=== PATIENT | female | born 2000 | race Caucasian/White ===

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

== ENCOUNTER 2022-03-10 15:30 | Outpatient (REF) | payer BC, MEDICAID, SELFPAY ==
--- NOTE | ~2022-03-10 | US_ITS ---
EXAMINATION: US PELVIS, LIMITED/FOLLOW UP CLINICAL INFORMATION: Excessive and frequent menses, last menstrual period 02/20/2022, patient declined transvaginal ultrasound. COMPARISON: None TECHNIQUE: Transabdominal ultrasound images were obtained of the pelvis. Bladder is suboptimally distended, limiting visualization for transabdominal ultrasound. Patient declined transvaginal ultrasound. FINDINGS: The uterus is heterogeneous and measures 7.0 x 3.7 x 4.9 cm. No discrete fibroid. Endometrial thickness 1.8 cm. No significant free fluid. Bilateral ovaries are unremarkable and measure 2.0 x 1.5 x 2.4 cm and 1.8 x 2.1 x 2.9 cm. US/US pelvic limited IMPRESSION: Uterus and bilateral ovaries are grossly unremarkable, however, visualization limited as bladder is suboptimally distended limiting visualization for transabdominal ultrasound. Patient declined transvaginal ultrasound. Transvaginal ultrasound should be considered for better visualization.
== END 2022-03-10 15:31 | disposition home or self-care (01) ==
LOC: HO.HMGCX 15:30
PROVIDERS: Visit Provider Nurse Practitioner Primary Care
DX: N92.0 Excessive and frequent menstruation with regular cycle (principal)
CPT/HCPCS: 76857

== ENCOUNTER 2022-04-14 08:46 | Outpatient (RCR) | payer BC, MEDICAID, SELFPAY | END 2022-05-10 12:12 | disposition home or self-care (01) | LOC: HO.WCC 08:46 | PROVIDERS: PCP Nurse Practitioner Primary Care; Visit Provider Physician Assistant | DX: L98.499 Non-pressure chronic ulcer of skin of other sites with unspecified severity (principal); L02.91 Cutaneous abscess, unspecified; E10.9 Type 1 diabetes mellitus without complications | CPT/HCPCS: 17250; 97602; 99212; 99213 ==

== ENCOUNTER 2022-09-20 14:04 | Emergency (ER) | payer BC, MEDICAID, SELFPAY ==
[2022-09-20 14:13] VITALS: BP 155/82; PULSE 98; RESP 20; TEMP 36.6; O2SAT 98; BMI 34.9
--- NOTE | 2022-09-20 14:13 | ED_ITS ---
HPI - General Adult General Chief complaint: Recheck/Abnormal Lab/Rx Stated complaint: Low blood sugar Related Data Home Medications Medication Instructions Recorded Confirmed insulin aspart U-100 100 unit/mL 1 unit subcut TID 01/19/21 01/19/21 (3 mL) subcutaneous pen (Novolog FlexPen U-100 Insulin aspart) insulin degludec 100 unit/mL (3 80 unit subcut BEDTIME 01/19/21 01/19/21 mL) subcutaneous pen (Tresiba FlexTouch U-100 insulin) Allergies Allergy/AdvReac Type Severity Reaction Status Date / Time No Known Allergies Allergy Verified 01/19/21 13:43 [facility] Past Medical History Surgical History (Updated 01/19/21 @ 13:47 by EL Ng) History of appendectomy History of placement of ear tubes Family History Family History (Updated 01/19/21 @ 13:47 by EL Ng) Father Heart disease Mother No problems noted. Social History Social History (Updated 01/19/21 @ 13:46 by EL Ng) Alcohol intake: never Patient Tobacco Use Status: Never used Tobacco Advance Directives: No Advance Directives Information Provided: No Physical Exam ED Vital Signs: BMI result Body Mass Index 34.9 Course Course Course Narrative: This is rapid medical exam. Deferred additional HPI, ROS, PE to primary provider. 21 yo female IDDM, with recent medication changes in the last week here with low blood sugars since yesterday. BS 117 in triage. Will obtain labs, UA, COVID screen. VSS Medical Decision Making Lab Data 09/20/22 14:22 09/20/22 14:22 Labs: Lab Results 09/20/22 09/20/22 09/20/22 Range/Units 14:09 14:22 14:22 WBC 8.6 (4.8-10.8) X10*3/uL RBC 4.89 (4.20-5.50) X10*6/uL Hgb 12.6 (12.0-16.0) g/dl Hct 39.6 (37.0-47.0) % MCV 81.0 (80.0-98.0) fL MCH 25.8 L (27.0-33.0) pg MCHC 31.8 (31.0-35.0) g/dl RDW 13.4 (11.0-16.0) % Plt Count 399 (160-400) X10*3/uL MPV 9.8 (9.4-12.3) fL Immature Gran % (Auto) 0.2 (0.0-0.4) % Neut % (Auto) 61.5 (45-73) % Lymph % (Auto) 30.8 (20-40) % [place] % (Auto) 6.0 (2-11) % Eos % (Auto) 1.3 (0-4) % Baso % (Auto) 0.2 (0-2) % Lymph # (Auto) 2.6 (1.2-4.9) X10*3/uL [place] # (Auto) 0.5 (0.1-1.2) X10*3/uL Eos # (Auto) 0.1 (0.0-0.4) X10*3/uL Baso # (Auto) 0.0 (0.0-0.2) X10*3/uL Abs Immat Gran (auto) 0.02 (0.00-0.03) X10*3/uL Absolute Neuts (auto) 5.3 (2.0-8.3) x10*3/uL Absolute Nucleated RBC 0.000 (0.0-0.012) X10*3/uL Nucleated RBC % (auto) 0.0 (0.0-0.2) /100WBC Sodium 139 (135-145) mmol/L Potassium 4.2 (3.3-5.1) mmol/L Chloride 102 (96-108) mmol/L Carbon Dioxide 29 (22-29) mmol/L Anion Gap 12 (12-20) BUN 11 (9-16) mg/dL Creatinine 0.68 (0.5-1.4) mg/dL Estim Creat Clear Calc 168.1 Estimated GFR > 60 POC Glucose 117 H (60-115) mg/dL Random Glucose 105 (60-115) mg/dL Calcium 9.7 (8.4-10.2) mg/dL Total Bilirubin 0.2 (0.0-1.0) mg/dL Direct Bilirubin < 0.2 (0.0-0.5) mg/dL AST 25 (5-31) U/L ALT 39 H (0-31) U/L Alkaline Phosphatase 126 H (39-117) U/L Total Protein 6.8 (6.5-8.0) g/dL Albumin 3.8 (3.5-5.0) g/dL COVID-19 (DEBRA) (Negative) COVID-19 Clin Com 09/20/22 Range/Units 14:22 WBC (4.8-10.8) X10*3/uL RBC (4.20-5.50) X10*6/uL Hgb (12.0-16.0) g/dl Hct (37.0-47.0) % MCV (80.0-98.0) fL MCH (27.0-33.0) pg MCHC (31.0-35.0) g/dl RDW (11.0-16.0) % Plt Count (160-400) X10*3/uL MPV (9.4-12.3) fL Immature Gran % (Auto) (0.0-0.4) % Neut % (Auto) (45-73) % Lymph % (Auto) (20-40) % [place] % (Auto) (2-11) % Eos % (Auto) (0-4) % Baso % (Auto) (0-2) % Lymph # (Auto) (1.2-4.9) X10*3/uL [place] # (Auto) (0.1-1.2) X10*3/uL Eos # (Auto) (0.0-0.4) X10*3/uL Baso # (Auto) (0.0-0.2) X10*3/uL Abs Immat Gran (auto) (0.00-0.03) X10*3/uL Absolute Neuts (auto) (2.0-8.3) x10*3/uL Absolute Nucleated RBC (0.0-0.012) X10*3/uL Nucleated RBC % (auto) (0.0-0.2) /100WBC Sodium (135-145) mmol/L Potassium (3.3-5.1) mmol/L Chloride (96-108) mmol/L Carbon Dioxide (22-29) mmol/L Anion Gap (12-20) BUN (9-16) mg/dL Creatinine (0.5-1.4) mg/dL Estim Creat Clear Calc Estimated GFR POC Glucose (60-115) mg/dL Random Glucose (60-115) mg/dL Calcium (8.4-10.2) mg/dL Total Bilirubin (0.0-1.0) mg/dL Direct Bilirubin (0.0-0.5) mg/dL AST (5-31) U/L ALT (0-31) U/L Alkaline Phosphatase (39-117) U/L Total Protein (6.5-8.0) g/dL Albumin (3.5-5.0) g/dL COVID-19 (DEBRA) Negative (Negative) COVID-19 Clin Com See Note Discharge Plan Discharge Clinical Impression: Type I diabetes mellitus with complication Patient Disposition: Elopement Prescriptions: No Action Tresiba FlexTouch U-100 100 unit/mL (3 mL) insulin pen 80 unit subcut BEDTIME insulin aspart U-100 [Novolog FlexPen U-100 Insulin] 100 unit/mL (3 mL) insulin pen 1 unit subcut TID Rx Instructions: as directed per sliding scale Interventions: ED Discharge Assessment Last Done: 09/20/22 17:41 Discharge Date/Time: 09/20/22 17:42
[2022-09-20 14:27] LABS: MANUAL DIFF FLAG NO
[2022-09-20 14:32] LABS: Basophils Percent Auto 0.2 % (0-2); Eosinophils Absolute Auto 0.1 X10*3/uL (0.0-0.4); Eosinophils Percent Auto 1.3 % (0-4); Hematocrit 39.6 % (37.0-47.0); Hemoglobin 12.6 g/dl (12.0-16.0); Imm Gran Abs Auto 0.02 X10*3/uL (0.00-0.03); Imm Gran Pct Auto 0.2 % (0.0-0.4); Lymphocytes Absolute Auto 2.6 X10*3/uL (1.2-4.9); Lymphocytes Percent Auto 30.8 % (20-40); Mean Corpuscular HGB Conc 31.8 g/dl (31.0-35.0); Mean Corpuscular Hemoglobin 25.8 pg (27.0-33.0); Mean Platelet Volume 9.8 fL (9.4-12.3); Monocytes Absolute Auto 0.5 X10*3/uL (0.1-1.2); Neutrophils Absolute Auto 5.3 x10*3/uL (2.0-8.3); Neutrophils Percent Auto 61.5 % (45-73); Platelet Count 399 X10*3/uL (160-400); Red Blood Count 4.89 X10*6/uL (4.20-5.50); Red Cell Distribution Width 13.4 % (11.0-16.0); White Blood Count 8.6 X10*3/uL (4.8-10.8)
[2022-09-20 14:46] LABS: Alanine Aminotransferase 39 U/L (0-31); Albumin Level 3.8 g/dL (3.5-5.0); Alkaline Phosphatase 126 U/L (39-117); Anion Gap 12 (12-20); Aspartate Amino Transferase 25 U/L (5-31); Bilirubin Direct < 0.2 mg/dL (0.0-0.5); Bilirubin Total 0.2 mg/dL (0.0-1.0); Blood Urea Nitrogen 11 mg/dL (9-16); Calcium 9.7 mg/dL (8.4-10.2); Carbon Dioxide 29 mmol/L (22-29); Chloride 102 mmol/L (96-108); Creatinine Clr Calc Pharmacy 168.1; Estimated Glomerular Filt Rate > 60; Glucose Random 105 mg/dL (60-115); Potassium 4.2 mmol/L (3.3-5.1); Sodium 139 mmol/L (135-145); Total Protein 6.8 g/dL (6.5-8.0)
[2022-09-20 14:53] LABS: COVID-19 Test Negative (Negative); IDNOW Serial# 9DB6401D
[2022-09-22 08:03] LABS: Glucose, Whole Blood 117 mg/dL (60-115)
== END 2022-09-20 17:42 | disposition left against medical advice (07) ==
PROVIDERS: Nurse Practitioner Family; Emergency Provider Emergency Medicine; PCP Nurse Practitioner Primary Care
DX: E10.649 Type 1 diabetes mellitus with hypoglycemia without coma (principal); Z20.822 Contact with and (suspected) exposure to COVID-19; Z20.828 Contact with and (suspected) exposure to other viral communicable diseases; Z79.4 Long term (current) use of insulin; Z79.899 Other long term (current) drug therapy
CPT/HCPCS: 80048; 80076; 82947; 85025; 87635; 99282; 99283

== ENCOUNTER 2023-03-06 11:27 | Outpatient (REF) | payer BC, MEDICAID, SELFPAY | END 2023-03-06 11:28 | disposition home or self-care (01) | LOC: HO.LAB 11:27 | PROVIDERS: PCP Nurse Practitioner Family; Visit Provider Nurse Practitioner Family | DX: Z13.89 Encounter for screening for other disorder (principal) | CPT/HCPCS: 36415; 86481 ==

== ENCOUNTER 2023-05-09 15:28 | Outpatient (REF) | payer BC, MEDICAID, SELFPAY ==
[2023-05-11 17:39] LABS: TS Negative Control Passed; TS Panel A 1; TS Panel B 0; TS Positive Control Passed; TSpotTB Negative (Negative)
== END 2023-05-09 15:29 | disposition home or self-care (01) ==
LOC: HO.HHCL 15:28
PROVIDERS: Visit Provider Nurse Practitioner Family
DX: Z00.00 Encounter for general adult medical examination without abnormal findings (principal); Z11.1 Encounter for screening for respiratory tuberculosis
CPT/HCPCS: 36415; 86481

== ENCOUNTER 2023-05-11 17:49 | Outpatient (REF) | payer BC, MEDICAID, SELFPAY | END 2023-05-11 17:50 | disposition home or self-care (01) | LOC: HO.LNP 17:49 | PROVIDERS: Visit Provider Family Medicine | DX: L60.0 Ingrowing nail (principal) | CPT/HCPCS: 87070; 87205 ==

== ENCOUNTER 2023-05-23 12:39 | Outpatient (RCR) | payer BC, MEDICAID, SELFPAY | END 2023-05-30 14:39 | disposition home or self-care (01) | LOC: HO.WCC 12:39 | PROVIDERS: PCP Nurse Practitioner Family; Visit Provider Surgery | DX: Z09 Encounter for follow-up examination after completed treatment for conditions other than malignant neoplasm (principal); L60.0 Ingrowing nail; E10.9 Type 1 diabetes mellitus without complications; Z79.4 Long term (current) use of insulin; Z87.2 Personal history of diseases of the skin and subcutaneous tissue | CPT/HCPCS: 99213 ==

== ENCOUNTER 2023-11-17 06:54 | Emergency (ER) | payer BC, MEDICAID, SELFPAY ==
[2023-11-17 07:16] VITALS: BP 143/80; PULSE 129; RESP 18; TEMP 37.1; O2SAT 97; BMI 43.6
--- NOTE | 2023-11-17 07:46 | ED.NAVMDI ---
HPI - Nausea/Vomiting/Diarrhea General Chief complaint: Nausea/Vomiting/Diarrhea Stated complaint: vomiting Time Seen by Provider: 11/17/23 07:11 Source: patient and family Mode of arrival: ambulatory History of Present Illness HPI Narrative: 23-year-old female with history of type 1 diabetes presents with onset of multiple episodes of nausea, vomiting, nonbloody diarrhea since 22:00 last night, reports only eating food at home, mild abdominal discomfort, denies sick contacts Related Data Home Medications Medication Instructions Recorded Confirmed insulin aspart U-100 100 unit/mL 1 unit subcut TID 01/19/21 01/19/21 (3 mL) subcutaneous pen (Novolog FlexPen U-100 Insulin aspart) insulin degludec 100 unit/mL (3 80 unit subcut BEDTIME 01/19/21 01/19/21 mL) subcutaneous pen (Tresiba FlexTouch U-100 insulin) Previous Rx's Medication Instructions Recorded ondansetron 4 mg disintegrating 4 mg PO Q8H PRN nausea and 11/17/23 tablet vomiting 4 days #7 tabs Allergies Allergy/AdvReac Type Severity Reaction Status Date / Time No Known Allergies Allergy Verified 01/19/21 13:43 Review of Systems Review of Systems: Pertinent positives and negatives as stated in HPI PMFSH Past Medical History Source: nursing notes reviewed Surgical History History of placement of ear tubes History of appendectomy Family History Family History Father Heart disease Mother No problems noted. Social History Social History Alcohol intake: never Patient Tobacco Use Status: Never used Tobacco Advance Directives: No Advance Directives Information Provided: No Physical Exam Vital Signs: Vital Signs: Last Vital Signs Temp 99.4 F 11/17/23 13:39 Pulse 113 H 11/17/23 13:39 Resp 14 11/17/23 13:39 BP 133/81 11/17/23 13:39 Pulse Ox 96 11/17/23 13:39 O2 Del Method Room Air 11/17/23 13:39 BMI result Body Mass Index 43.6 VITAL SIGNS: Reviewed. GENERAL: Well developed, well nourished, in no acute distress. HEAD: Normocephalic/atraumatic EYES: PERRLA, EOMI EARS: Ext canals without abnormality NOSE: Nares patent bilateral OROPHARYNX: no oral lesions noted, posterior pharynx clear NECK: Supple, no adenopathy LUNGS: Normal breath sounds. No adventitious sounds or accessory muscle use. SpO2<97> CARDIOVASCULAR: Regular rate and rhythm without noted murmurs ABDOMEN: Soft, non-tender, non-distended with bowel sounds. MUSCULOSKELETAL: No tenderness, deformities, or effusions noted on gross inspection. EXTREMITIES: No cyanosis, clubbing or edema. SKIN: Inspection of the skin reveals no rashes NEUROLOGIC: Alert and oriented x 4. Strength and sensation to light touch were grossly intact x 4. Medications Administered Discontinued Medications Generic Name Dose Route Start Last Admin Trade Name Freq PRN Reason Stop Dose Admin Acetaminophen 975 mg 11/17/23 14:20 11/17/23 14:42 Acetaminophen 325 Mg Tablet PO 11/17/23 14:21 975 mg ONCE ONE Administration Sodium Chloride 1,000 mls @ 999 mls/hr 11/17/23 07:30 11/17/23 09:22 Ns IV 11/17/23 08:30 Infused .Q1H1M DERECK Infusion Sodium Chloride 1,000 mls @ 999 mls/hr 11/17/23 09:30 11/17/23 11:07 Ns IV 11/17/23 10:30 Infused .Q1H1M DERECK Infusion Ibuprofen 400 mg 11/17/23 14:20 11/17/23 14:42 Ibuprofen 400 Mg Tablet PO 11/17/23 14:21 400 mg ONCE ONE Administration Insulin Human Lispro 26 unit 11/17/23 11:19 11/17/23 11:29 Insulin Lispro 100 Unit/Ml 3 Ml Vial SUBCUT 11/17/23 11:20 26 unit ONCE ONE Administration Ondansetron HCl 4 mg 11/17/23 07:29 11/17/23 08:03 Ondansetron Hcl 4 Mg/2 Ml Vial IVPUSH 11/17/23 07:30 4 mg ONCE ONE Administration Medical Decision Making Medical Decision Making MDM Narrative: 23-year-old female with history and clinical presentation, DDX: Viral illness, food poisoning, gastroenteritis, lower clinical suspicion for or UTI. Patient receive IV/2 L IV fluids. I reviewed all investigations and hematologic indices are significant for noninfectious leukocytosis, patient is afebrile and there is no anemia or thrombocytopenia. Chemistry indices significant for pseudohyponatremia secondary to hyperglycemia and otherwise no evidence of ELIZABETH but there is noted transaminase elevation with a chronically stable alkaline phosphatase. There is no evidence of DKA, patient likely has a component of dehydration and did receive 2 L of IV fluids as well as Zofran. Urinalysis is negative for UTI/hematuria and urine is negative. 1119: Patient is tolerating oral intake, repeat point of care glucose demonstrates that she is at 300, patient has her sliding scale insulin with her, according to the sliding scale patient will receive 26 units of lispro, she is also offered additional food and will observe/monitor. She does report feeling better. GI panel positive for rotavirus, patient given supportive treatment recommendations and to continue with Tylenol and ibuprofen as she may run low-grade fevers. Differential Diagnosis Differential Diagnoses: The differential diagnosis associated with the presentation includes Please see the discussion above Admission/Observation Consideration of admission/observation: Escalation of care including admission/observation considered Please see the discussion above Lab Data MDM Lab Attestation statement: I reviewed the patient's lab results. Please see the discussion above 11/17/23 08:00 11/17/23 08:00 Labs: Lab Results 11/17/23 11/17/23 11/17/23 Range/Units 08:00 08:06 09:19 WBC 11.1 H (4.8-10.8) X10*3/uL RBC 5.35 (4.20-5.50) X10*6/uL Hgb 14.1 (12.0-16.0) g/dl Hct 43.3 (37.0-47.0) % MCV 80.9 (80.0-98.0) fL MCH 26.4 L (27.0-33.0) pg MCHC 32.6 (31.0-35.0) g/dl RDW 13.0 (11.0-16.0) % Plt Count 351 (160-400) X10*3/uL MPV 10.0 (9.4-12.3) fL Immature Gran % (Auto) 0.2 (0.0-0.4) % Neut % (Auto) 93.1 H (45-73) % Lymph % (Auto) 3.1 L (20-40) % [place] % (Auto) 3.3 (2-11) % Eos % (Auto) 0.2 (0-4) % Baso % (Auto) 0.1 (0-2) % Lymph # (Auto) 0.3 L (1.2-4.9) X10*3/uL [place] # (Auto) 0.4 (0.1-1.2) X10*3/uL Eos # (Auto) 0.0 (0.0-0.4) X10*3/uL Baso # (Auto) 0.0 (0.0-0.2) X10*3/uL Abs Immat Gran (auto) 0.02 (0.00-0.03) X10*3/uL Absolute Neuts (auto) 10.3 H (2.0-8.3) x10*3/uL Absolute Nucleated RBC 0.000 (0.0-0.012) X10*3/uL Nucleated RBC % (auto) 0.0 (0.0-0.2) /100WBC Smear Tech's Comments VERIFIED Sodium 134 L (135-145) mmol/L Potassium 4.2 (3.3-5.1) mmol/L Chloride 100 (96-108) mmol/L Carbon Dioxide 24 (22-29) mmol/L Anion Gap 14 (12-20) BUN 12 (9-16) mg/dL Creatinine 0.72 (0.5-1.4) mg/dL Estim Creat Clear Calc 176.2 Estimated GFR > 60 POC Glucose 293 H 257 H (60-115) mg/dL Random Glucose 335 H (60-115) mg/dL Calcium 9.9 (8.4-10.2) mg/dL Total Bilirubin 0.4 (0.0-1.0) mg/dL AST 71 H (5-31) U/L ALT 89 H (0-31) U/L Alkaline Phosphatase 137 H (39-117) U/L Total Protein 7.4 (6.5-8.0) g/dL Albumin 3.7 (3.5-5.0) g/dL Urine Color Urine Appearance Urine pH (5.0-9.0) Ur Specific [place] (1.005-1.025) Urine Protein (Neg-Trace) mg/dL Urine Glucose (UA) (Negative) mg/dL Urine Ketones (Negative) mg/dL Urine Blood (Negative) Urine Nitrite (Negative) Ur Leukocyte Esterase (Negative) Urine RBC (0-2) /HPF Urine WBC (0-5) /HPF Ur Squamous Epith Cells (0-2) /HPF Urine Bacteria (None Seen) Hyaline Casts (0-2) /LPF Urine Test (NEGATIVE) Stl C. cayetanensis PCR (Not Detect.) Stool Rotavirus A PCR (Not Detect.) Stl Adenov F 40/41 PCR (Not Detect.) Stool Astrovirus (PCR) (Not Detect.) Stool Campylobacter PCR (Not Detect.) Stool Cryptosporidium PCR (Not Detect.) Stl Sh Tox Pr E STEC PCR (Not Detect.) Stool E coli O157 PCR (Not Detect.) Stl Enterotoxigenic E PCR (Not Detect.) Stool EPEC (PCR) (Not Detect.) Stool EAEC (PCR) (Not Detect.) Stl E. histolytica PCR (Not Detect.) Stool Giardia Lamblia PCR (Not Detect.) Stl P. shigelloides PCR (Not Detect.) Stool Salmonella PCR (Not Detect.) Stool Sapovirus (PCR) (Not Detect.) Stl Shigella/EIEC PCR (Not Detect.) St Y.enterocolitica PCR (Not Detect.) Stool Vibrio (PCR) (Not Detect.) Stl Vibrio cholerae PCR (Not Detect.) Stl Norovirus GI/GII PCR (Not Detect.) 11/17/23 11/17/23 11/17/23 Range/Units 10:36 10:37 11:09 WBC (4.8-10.8) X10*3/uL RBC (4.20-5.50) X10*6/uL Hgb (12.0-16.0) g/dl Hct (37.0-47.0) % MCV (80.0-98.0) fL MCH (27.0-33.0) pg MCHC (31.0-35.0) g/dl RDW (11.0-16.0) % Plt Count (160-400) X10*3/uL MPV (9.4-12.3) fL Immature Gran % (Auto) (0.0-0.4) % Neut % (Auto) (45-73) % Lymph % (Auto) (20-40) % [place] % (Auto) (2-11) % Eos % (Auto) (0-4) % Baso % (Auto) (0-2) % Lymph # (Auto) (1.2-4.9) X10*3/uL [place] # (Auto) (0.1-1.2) X10*3/uL Eos # (Auto) (0.0-0.4) X10*3/uL Baso # (Auto) (0.0-0.2) X10*3/uL Abs Immat Gran (auto) (0.00-0.03) X10*3/uL Absolute Neuts (auto) (2.0-8.3) x10*3/uL Absolute Nucleated RBC (0.0-0.012) X10*3/uL Nucleated RBC % (auto) (0.0-0.2) /100WBC Smear Tech's Comments Sodium (135-145) mmol/L Potassium (3.3-5.1) mmol/L Chloride (96-108) mmol/L Carbon Dioxide (22-29) mmol/L Anion Gap (12-20) BUN (9-16) mg/dL Creatinine (0.5-1.4) mg/dL Estim Creat Clear Calc Estimated GFR POC Glucose 300 H (60-115) mg/dL Random Glucose (60-115) mg/dL Calcium (8.4-10.2) mg/dL Total Bilirubin (0.0-1.0) mg/dL AST (5-31) U/L ALT (0-31) U/L Alkaline Phosphatase (39-117) U/L Total Protein (6.5-8.0) g/dL Albumin (3.5-5.0) g/dL Urine Color Yellow Urine Appearance Clear Urine pH 6.0 (5.0-9.0) Ur Specific [place] >= 1.030 H (1.005-1.025) Urine Protein Negative (Neg-Trace) mg/dL Urine Glucose (UA) >=1000 H (Negative) mg/dL Urine Ketones 15 (Negative) mg/dL Urine Blood Negative (Negative) Urine Nitrite Negative (Negative) Ur Leukocyte Esterase Negative (Negative) Urine RBC 0-2 (0-2) /HPF Urine WBC 0-5 (0-5) /HPF Ur Squamous Epith Cells 0-2 (0-2) /HPF Urine Bacteria Trace (None Seen) Hyaline Casts 0-2 (0-2) /LPF Urine Test NEGATIVE (NEGATIVE) Stl C. cayetanensis PCR Not Detected (Not Detect.) Stool Rotavirus A PCR Detected A (Not Detect.) Stl Adenov F 40/41 PCR Not Detected (Not Detect.) Stool Astrovirus (PCR) Not Detected (Not Detect.) Stool Campylobacter PCR Not Detected (Not Detect.) Stool Cryptosporidium PCR Not Detected (Not Detect.) Stl Sh Tox Pr E STEC PCR Not Detected (Not Detect.) Stool E coli O157 PCR Not applicable (Not Detect.) Stl Enterotoxigenic E PCR Not Detected (Not Detect.) Stool EPEC (PCR) Not Detected (Not Detect.) Stool EAEC (PCR) Not Detected (Not Detect.) Stl E. histolytica PCR Not Detected (Not Detect.) Stool Giardia Lamblia PCR Not Detected (Not Detect.) Stl P. shigelloides PCR Not Detected (Not Detect.) Stool Salmonella PCR Not Detected (Not Detect.) Stool Sapovirus (PCR) Not Detected (Not Detect.) Stl Shigella/EIEC PCR Not Detected (Not Detect.) St Y.enterocolitica PCR Not Detected (Not Detect.) Stool Vibrio (PCR) Not Detected (Not Detect.) Stl Vibrio cholerae PCR Not Detected (Not Detect.) Stl Norovirus GI/GII PCR Not Detected (Not Detect.) 11/17/23 Range/Units 14:12 WBC (4.8-10.8) X10*3/uL RBC (4.20-5.50) X10*6/uL Hgb (12.0-16.0) g/dl Hct (37.0-47.0) % MCV (80.0-98.0) fL MCH (27.0-33.0) pg MCHC (31.0-35.0) g/dl RDW (11.0-16.0) % Plt Count (160-400) X10*3/uL MPV (9.4-12.3) fL Immature Gran % (Auto) (0.0-0.4) % Neut % (Auto) (45-73) % Lymph % (Auto) (20-40) % [place] % (Auto) (2-11) % Eos % (Auto) (0-4) % Baso % (Auto) (0-2) % Lymph # (Auto) (1.2-4.9) X10*3/uL [place] # (Auto) (0.1-1.2) X10*3/uL Eos # (Auto) (0.0-0.4) X10*3/uL Baso # (Auto) (0.0-0.2) X10*3/uL Abs Immat Gran (auto) (0.00-0.03) X10*3/uL Absolute Neuts (auto) (2.0-8.3) x10*3/uL Absolute Nucleated RBC (0.0-0.012) X10*3/uL Nucleated RBC % (auto) (0.0-0.2) /100WBC Smear Tech's Comments Sodium (135-145) mmol/L Potassium (3.3-5.1) mmol/L Chloride (96-108) mmol/L Carbon Dioxide (22-29) mmol/L Anion Gap (12-20) BUN (9-16) mg/dL Creatinine (0.5-1.4) mg/dL Estim Creat Clear Calc Estimated GFR POC Glucose 214 H (60-115) mg/dL Random Glucose (60-115) mg/dL Calcium (8.4-10.2) mg/dL Total Bilirubin (0.0-1.0) mg/dL AST (5-31) U/L ALT (0-31) U/L Alkaline Phosphatase (39-117) U/L Total Protein (6.5-8.0) g/dL Albumin (3.5-5.0) g/dL Urine Color Urine Appearance Urine pH (5.0-9.0) Ur Specific [place] (1.005-1.025) Urine Protein (Neg-Trace) mg/dL Urine Glucose (UA) (Negative) mg/dL Urine Ketones (Negative) mg/dL Urine Blood (Negative) Urine Nitrite (Negative) Ur Leukocyte Esterase (Negative) Urine RBC (0-2) /HPF Urine WBC (0-5) /HPF Ur Squamous Epith Cells (0-2) /HPF Urine Bacteria (None Seen) Hyaline Casts (0-2) /LPF Urine Test (NEGATIVE) Stl C. cayetanensis PCR (Not Detect.) Stool Rotavirus A PCR (Not Detect.) Stl Adenov F 40/41 PCR (Not Detect.) Stool Astrovirus (PCR) (Not Detect.) Stool Campylobacter PCR (Not Detect.) Stool Cryptosporidium PCR (Not Detect.) Stl Sh Tox Pr E STEC PCR (Not Detect.) Stool E coli O157 PCR (Not Detect.) Stl Enterotoxigenic E PCR (Not Detect.) Stool EPEC (PCR) (Not Detect.) Stool EAEC (PCR) (Not Detect.) Stl E. histolytica PCR (Not Detect.) Stool Giardia Lamblia PCR (Not Detect.) Stl P. shigelloides PCR (Not Detect.) Stool Salmonella PCR (Not Detect.) Stool Sapovirus (PCR) (Not Detect.) Stl Shigella/EIEC PCR (Not Detect.) St Y.enterocolitica PCR (Not Detect.) Stool Vibrio (PCR) (Not Detect.) Stl Vibrio cholerae PCR (Not Detect.) Stl Norovirus GI/GII PCR (Not Detect.) External Record Review External record reviewed: Outpatient record, Prior outpatient labs and Prior outpatient radiology Chronic Conditions Patient?s care impacted by: Diabetes Critical Care Time Critical Care Time Critical Care Time: Yes Total Critical Care Time: 60 Attestation: I personally attest to this time spent taking care of the patient. Discharge Plan Discharge Clinical Impression: Gastroenteritis, Dehydration, Food poisoning due to rotavirus Patient Disposition: Home, Self-Care Instructions: Rotavirus Infection in Children (ED), Dehydration (ED), Gastroenteritis (ED) Additional Instructions: 1. Resume all home medications as prescribed. Continue to stay well hydrated. Recommend [id number] Tylenol/ibuprofen for any discomfort or temperatures greater than 100.4. 2. You have been prescribed medication to help control the nausea, please call your primary care doctor on Sunday morning to set up an appointment for re-evaluation. Return to the ER for any worsening symptoms. Prescriptions: New ondansetron 4 mg tablet,disintegrating 4 mg PO Q8H PRN (Reason: nausea and vomiting) 4 Days Qty: 7 0RF No Action Tresiba FlexTouch U-100 100 unit/mL (3 mL) insulin pen 80 unit subcut BEDTIME insulin aspart U-100 [Novolog FlexPen U-100 Insulin] 100 unit/mL (3 mL) insulin pen 1 unit subcut TID Rx Instructions: as directed per sliding scale Referrals: Lili Nails MD [Primary Care Provider] -
[2023-11-17] MEDS: ondansetron HCL 4 MG/2 ML VIAL IVPUSH (08:03)
[2023-11-17] MEDS: 0.9 % Sodium Chloride 1,000 ML 999 ML IV ×2 (08:03→09:47)
[2023-11-17 08:09] LABS: Basophils Percent Auto 0.1 % (0-2); Eosinophils Percent Auto 0.2 % (0-4); Hematocrit 43.3 % (37.0-47.0); Hemoglobin 14.1 g/dl (12.0-16.0); Imm Gran Abs Auto 0.02 X10*3/uL (0.00-0.03); Imm Gran Pct Auto 0.2 % (0.0-0.4); Lymphocytes Absolute Auto 0.3 X10*3/uL (1.2-4.9); Lymphocytes Percent Auto 3.1 % (20-40); MANUAL DIFF FLAG SCAN; Mean Corpuscular HGB Conc 32.6 g/dl (31.0-35.0); Mean Corpuscular Hemoglobin 26.4 pg (27.0-33.0); Mean Corpuscular Volume 80.9 fL (80.0-98.0); Monocytes Absolute Auto 0.4 X10*3/uL (0.1-1.2); Monocytes Percent Auto 3.3 % (2-11); Neutrophils Absolute Auto 10.3 x10*3/uL (2.0-8.3); Neutrophils Percent Auto 93.1 % (45-73); Platelet Count 351 X10*3/uL (160-400); Red Blood Count 5.35 X10*6/uL (4.20-5.50); SCAN SMEAR FLAG 1; White Blood Count 11.1 X10*3/uL (4.8-10.8)
[2023-11-17 08:10] LABS: Glucose, Whole Blood 293 mg/dL (60-115)
--- NOTE | 2023-11-17 08:12 | PC.NURSE ---
IV established, labs obtained and sent. medicated per the MAR w/ fluids infusing. plan to recheck poc after fluids have infused. offering no other complaints at this time, patient continues to report being exhausted and wanting to sleep. call solitario within reach, visitor at bedside
[2023-11-17 08:24] LABS: Alanine Aminotransferase 89 U/L (0-31); Albumin Level 3.7 g/dL (3.5-5.0); Alkaline Phosphatase 137 U/L (39-117); Anion Gap 14 (12-20); Aspartate Amino Transferase 71 U/L (5-31); Bilirubin Total 0.4 mg/dL (0.0-1.0); Blood Urea Nitrogen 12 mg/dL (9-16); Calcium 9.9 mg/dL (8.4-10.2); Carbon Dioxide 24 mmol/L (22-29); Chloride 100 mmol/L (96-108); Creatinine Clr Calc Pharmacy 176.2; Estimated Glomerular Filt Rate > 60; Glucose Random 335 mg/dL (60-115); Potassium 4.2 mmol/L (3.3-5.1); Sodium 134 mmol/L (135-145); Total Protein 7.4 g/dL (6.5-8.0)
[2023-11-17 08:34] LABS: SLIDE REVIEW VERIFIED
[2023-11-17 09:11] VITALS: BP 110/57; PULSE 110; RESP 18; TEMP 36.8; O2SAT 98
[2023-11-17 09:23] LABS: Glucose, Whole Blood 257 mg/dL (60-115)
--- NOTE | 2023-11-17 09:26 | PC.NURSE ---
second liter of fluids infusing per verbal order. poc obtained, provider aware. attempting to PO challenge patient w/ diet nasreen marcus and crackers
--- NOTE | 2023-11-17 10:40 | PC.NURSE ---
ambulated to the bathroom, able to provide urine and stool sample
[2023-11-17 10:47] LABS: Appearance Urine Clear; Color Urine Yellow; Glucose Urine UA >=1000 mg/dL (Negative); Leukocyte Esterase Urine Negative (Negative); Nitrite Urine Negative (Negative); Specific Gravity - Urine >= 1.030 (1.005-1.025); UMIC TRIGGER UACC YES; Urine Blood Negative (Negative); Urine Ketones 15 mg/dL (Negative); Urine Protein Negative (Neg-Trace)
[2023-11-17 10:52] LABS: UPreg QC Valid YES; Urine Pregnancy NEGATIVE (NEGATIVE)
[2023-11-17 10:53] LABS: Bacteria Urine Trace (None Seen); Hyaline Casts Urine 0-2 /LPF (0-2); RBC Urine 0-2 /HPF (0-2); Squamous Epithelial Cell Urine 0-2 /HPF (0-2); WBC Urine 0-5 /HPF (0-5)
[2023-11-17 11:07] VITALS: BP 125/70; PULSE 115; RESP 16; TEMP 36.8; O2SAT 96
[2023-11-17 11:13] LABS: Glucose, Whole Blood 300 mg/dL (60-115)
[2023-11-17] MEDS: Insulin Lispro 100 UNIT/ML 3 ML VIAL 26 UNIT SUBCUT (11:29)
--- NOTE | 2023-11-17 11:32 | PC.NURSE ---
medicated per the MAR based off of patient's own insulin sliding scale. provided with sandwich. patient has had no episodes of vomiting, continues to have diarrhea however states that it seems to be improving as well.
[2023-11-17 13:39] VITALS: BP 133/81; PULSE 113; RESP 14; TEMP 37.4; O2SAT 96
[2023-11-17 14:16] LABS: Glucose, Whole Blood 214 mg/dL (60-115)
[2023-11-17] MEDS: Ibuprofen 400 MG TABLET PO (14:42)
[2023-11-17] MEDS: Acetaminophen 325 MG TABLET 975 MG PO (14:42)
[2023-11-17 14:57] LABS: Adenovirus F 40/41 Not Detected (Not Detect.); Astrovirus Not Detected (Not Detect.); Campylobacter Not Detected (Not Detect.); Cryptosporidium Not Detected (Not Detect.); Cyclospora cayetanensis Not Detected (Not Detect.); E. coli EAEC Not Detected (Not Detect.); E. coli EPEC Not Detected (Not Detect.); E. coli ETEC Not Detected (Not Detect.); E. coli STEC Not Detected (Not Detect.); Entamoeba histolytica Not Detected (Not Detect.); Giardia lamblia Not Detected (Not Detect.); Norovirus GI/GII Not Detected (Not Detect.); Plesiomonas shigelloides Not Detected (Not Detect.); Rotavirus A Detected (Not Detect.); Salmonella Not Detected (Not Detect.); Sapovirus Not Detected (Not Detect.); Shigella sp./EIEC Not Detected (Not Detect.); Vibrio Not Detected (Not Detect.); Vibrio Cholerae Not Detected (Not Detect.); Yersinia enterocolitica Not Detected (Not Detect.)
[2023-11-17 15:24] VITALS: BP 133/81; PULSE 110; RESP 14; TEMP 37.3; O2SAT 96
== END 2023-11-17 15:25 | disposition home or self-care (01) ==
PROVIDERS: Emergency Provider Student in an Organized Health Care Education/Training Program; PCP Family Medicine
DX: A05.9 Bacterial foodborne intoxication, unspecified (principal); E86.0 Dehydration; E10.9 Type 1 diabetes mellitus without complications
CPT/HCPCS: 36415; 80053; 81001; 81025; 82947; 85025; 87507; 96361; 96374; 99284; 99285; J2405

== ENCOUNTER 2025-01-25 15:17 | Emergency (ER) | payer BC, MEDICAID, SELFPAY ==
[2025-01-25 15:28] VITALS: BP 153/84; PULSE 100; RESP 19; TEMP 36.6; O2SAT 96; BMI 42.3
--- NOTE | 2025-01-25 15:32 | ED_ITS ---
HPI - Wound/Laceration General Chief Complaint: Wound/Laceration Stated Complaint: Cat scratches on right foot Time Seen by Provider: 01/25/25 15:30 Source: patient, RN notes reviewed and old records reviewed Mode of arrival: ambulatory History of Present Illness ED Provider: Lisset West PA-C HPI narrative: 24-year-old female with a past medical history of diabetes presenting to the ED complaining of cat scratch to bottom of right foot x last night by her own cat. Denies injury to other area. Tetanus unknown. Denies pus drainage, fever, chills. Cat is up-to-date on vaccinations Related Data Home Medications ?Medication ?Instructions ?Recorded ?Confirmed insulin aspart U-100 100 unit/mL 1 unit subcut TID 01/19/21 01/19/21 (3 mL) subcutaneous pen (Novolog FlexPen U-100 Insulin aspart) insulin degludec 100 unit/mL (3 80 unit subcut BEDTIME 01/19/21 01/19/21 mL) subcutaneous pen (Tresiba FlexTouch U-100 insulin) Previous Rx's ?Medication ?Instructions ?Recorded ondansetron 4 mg disintegrating 4 mg PO Q8H PRN nausea and 11/17/23 tablet vomiting 4 days #7 tabs amoxicillin 875 mg-potassium 1 tab PO BID 5 days #10 tabs 01/25/25 clavulanate 125 mg tablet Allergies Allergy/AdvReac Type Severity Reaction Status Date / Time No Known Allergies Allergy Verified 01/25/25 15:31 Review of Systems Review of Systems: Yes all other systems are reviewed and are negative Constitutional: Constitutional: Reports as per [facility] Past Medical History Attestation statement: The following information was validated with the patient. Source: old records reviewed Surgical History History of placement of ear tubes History of appendectomy Family History Family History Father Heart disease Mother No problems noted. Social History Social History Alcohol intake: never Patient Tobacco Use Status: Never used Tobacco Physical Exam Vital Signs: Vital Signs: Last Vital Signs Temp 98 F 01/25/25 15:28 Pulse 100 01/25/25 15:28 Resp 19 01/25/25 15:28 BP 153/84 H 01/25/25 15:28 Pulse Ox 96 01/25/25 15:28 O2 Del Method Room Air 01/25/25 15:28 BMI result Body Mass Index 42.3 Const: General: cooperative, healthy appearing and no acute distress Orientation/consciousness: patient oriented x3 Limitations: no limitations HEENT: Head: Yes normal to inspection and Yes atraumatic Ears: hearing grossly normal bilaterally General nose exam: Normal external nose present Face and sinus: Yes normal facial exam Eyes: General: appearance normal, both eyes and all related structures EOM: EOMs intact bilaterally Neck: Neck: Yes normal visual inspection and Yes no meningeal signs Resp: Effort & Inspection: normal respiratory effort and no respiratory distress Cardio: Rate: regular rate Skin: Other: + superficial cat scratch/abrasion wound s noted to plantar aspect of right foot. No surrounding erythema. No gaping/open wounds. No active bleeding. Mildly tender to palpation. No appreciable foreign body. No fluctuance/induration Rashes: no rashes Neuro: General: patient oriented x3, tone normal and no meningeal signs Cranial nerves: Yes CN's II-XII intact bilaterally Gait exam (Neuro): Normal gait present Extrem: General: Yes normal to inspection Medications Administered Discontinued Medications Generic Name Dose Route Start Last Admin Trade Name Freq PRN Reason Stop Dose Admin Diphtheria/Tetanus/Acell Pertussis 0.5 ml 01/25/25 15:31 01/25/25 15:37 Diphth,Pertus(Acell),Tet Adult 0.5 Ml Syringe IM 01/25/25 15:32 0.5 ml .ONCE ONE Administration Medical Decision Making Medical Decision Making MDM Narrative: 24-year-old female with a past medical history of diabetes presenting to the ED complaining of cat scratch to bottom of right foot x last night by her own cat. On exam VSS, NAD, nontoxic appearing, PE as above w/superficial cat scratches to bottom of right foot without appreciable cellulitis/infection. No open wounds. Plan: Update tetanus, prophylactic Augmentin Please refer to course for remaining clinical decision making, interpretation of labs/imaging results, and discussions with consultants and/or family members. Results discussed with patient including worrisome signs and symptoms and strict return precautions, and when to return to the emergency department. They verbalized understanding and feel safe for discharge at this time. Differential Diagnosis Differential Diagnoses: The differential diagnosis associated with the presentation includes As above External Record Review External record reviewed: Inpatient record, Office record, Outpatient record, Prior outpatient labs, Prior outpatient radiology, Primary care record and Outside ED record Tests considered The following testing was considered but not selected: As above Prescription Management I considered prescription management with: Pain Medication and Antibiotic Chronic Conditions Patient?s care impacted by: Diabetes and Other Social Determinants Patient?s care significantly limited by Social Determinants of Health including: Other Social Determinant of Health Discharge Plan Discharge Clinical Impression: Cat scratch Patient Disposition: Home, Self-Care Instructions: Animal Bite (ED) Additional Instructions: Augmentin as an antibiotic please take as prescribed Your tetanus was updated today in the emergency department Keep an eye in the area, evaluate daily If area begins to look infected, is red, there is pus drainage, you have fever, increased swelling or pain return to the ED Prescriptions: New amoxicillin-pot clavulanate 875-125 mg tablet 1 tab PO BID 5 Days Qty: 10 0RF No Action ondansetron 4 mg tablet,disintegrating 4 mg PO Q8H PRN (Reason: nausea and vomiting) 4 Days Qty: 7 0RF Tresiba FlexTouch U-100 100 unit/mL (3 mL) insulin pen 80 unit subcut BEDTIME insulin aspart U-100 [Novolog FlexPen U-100 Insulin] 100 unit/mL (3 mL) insulin pen 1 unit subcut TID Rx Instructions: as directed per sliding scale Referrals: Lili Nails MD [Primary Care Provider] - 1 week Print Language: Faroese
[2025-01-25] MEDS: Diphth,Pertus(ACell),Tet Adult 0.5 ML SYRINGE IM (15:37)
[2025-01-25 15:42] VITALS: BP 153/84; PULSE 100; RESP 19; TEMP 36.6; O2SAT 96
== END 2025-01-25 15:42 | disposition home or self-care (01) ==
PROVIDERS: Emergency Provider Emergency Medicine; PCP Family Medicine
DX: S90.811A Abrasion, right foot, initial encounter (principal); W55.03XA Scratched by cat, initial encounter; E11.9 Type 2 diabetes mellitus without complications; Z79.4 Long term (current) use of insulin; Y93.9 Activity, unspecified; Y92.039 Unspecified place in apartment as the place of occurrence of the external cause; Y99.9 Unspecified external cause status; Z23 Encounter for immunization
CPT/HCPCS: 90471; 90715; 99282; 99284

== ENCOUNTER 2025-08-04 13:30 | Outpatient (RCR) | payer BC, MEDICAID, SELFPAY | END 2025-08-04 16:50 | disposition home or self-care (01) | LOC: HO.WCC 13:30 | PROVIDERS: PCP Family Medicine; Visit Provider Surgery Surgical Oncology | DX: E10.622 Type 1 diabetes mellitus with other skin ulcer (principal); L98.499 Non-pressure chronic ulcer of skin of other sites with unspecified severity; L73.2 Hidradenitis suppurativa; I10 Essential (primary) hypertension; Z79.4 Long term (current) use of insulin; Z79.2 Long term (current) use of antibiotics | CPT/HCPCS: 99203; 99213; 99214 ==